=== PATIENT | female | born 1995 | race Caucasian/White ===

== ENCOUNTER 2023-11-16 17:05 | Emergency (ER) | payer OTHER, SELFPAY ==
--- NOTE | ~2023-11-16 | CT_ITS ---
EXAMINATION: CT soft tissue neck w con DATE: 11/17/2023 00:13 INDICATION: Right lymphadenopathy TECHNIQUE: Computed tomography (CT) of the neck was performed with 75 mL Omnipaque-350 intravenous co ntrast. Automated exposure control and iterative reconstruction technique were employed. Exam dose: 510.18 mGy-cm total exam DLP. COMPARISON: None FINDINGS: Prominence of the tonsils and adenoids. No abscess is detected. Normal epiglottis. No preve rtebral soft tissue swelling or emphysema. Normal parotid and submandibular glands. Normal size and homogeneous enhancement of the thyroid gland . No cervical mass lesion or cervical lymphadenopathy is noted. No hilar or mediastinal lymphadenopathy is detected in the upper chest. The mastoid air cells and paranasal sinuses appear normally developed and aerated. The orbital contents appear normal. Included intracranial contents and intracranial vasculature appear normal. Included upper lungs are clear. IMPRESSION: Adenoid and tonsillar prominent; no abscess is detected Reviewed, dictated and finalized at [facility]. Reviewed, dictated and finalized at [facility].
[2023-11-16 17:06] VITALS: BP 129/74; PULSE 62; RESP 16; TEMP 36.2; O2SAT 98
[2023-11-16 19:05] LABS: Strep Group A RT-PCR NOT DETECTED (Negative)
[2023-11-16 19:17] LABS: Influenza A QL RT-PCR Negative (Negative); Influenza B QL RT-PCR Negative (Negative); RSV RNA, RT-PCR Negative (Negative); SARS-CoV-2 RNA PCR Negative (Negative)
[2023-11-16 19:53] VITALS: BP 130/84; PULSE 75; O2SAT 100
--- NOTE | 2023-11-16 22:32 | ED.GENADULT ---
HPI - General Adult General Chief complaint: Unspecified Stated complaint: throat pain Time Seen by Provider: 11/16/23 22:03 Source: patient Mode of arrival: ambulatory Limitations: no limitations History of Present Illness HPI narrative: Patient is a 28-year-old female who presents the ED with report of right-sided neck pain and swelling. Patient reports she began noticing a knot on the right side of her anterior throat/neck on . States this has persisted. Has some discomfort with swallowing. Denies difficulty swallowing. Denies significant sore throat, cough or cold symptoms. She does have year-round allergies and states these have been worse the last few days. Denies fevers. Denies vomiting. Related Data Allergies Allergy/AdvReac Type Severity Reaction Status Date / Time No Known Allergies Allergy Verified 11/17/23 02:09 Review of Systems Review of Systems: CONSTITUTIONAL: Denies fever, chills, or sweats. ENT: See HPI. CARDIOVASCULAR: Denies chest pain. RESPIRATORY: Denies cough or dyspnea. GASTROINTESTINAL: Denies nausea, vomiting. All systems reviewed & are unremarkable except as noted in HPI and below Exam Narrative: GENERAL: Well appearing, obese with BMI of 33.0, non-toxic, in no acute distress. HEAD: Normocephalic, atraumatic. ENT: MMs moist. No significant posterior pharynx erythema. Tonsils are mildly enlarged bilaterally, symmetric, no obvious exudate. Uvula is midline and nonedematous. NECK: Supple, no meningeal signs. Mildly enlarged submandibular vs tonsillar lymphadenopathy noted on the right, soft, mildly tender. No significant posterior lymphadenopathy noted. RESPIRATORY: Airway patent, respirations nonlabored. No stridor or distress. CARDIOVASCULAR: Regular rate and rhythm MUSCULOSKELETAL: Moves all extremities. No gross deformities. SKIN: Warm, dry, normal color. NEURO: A&O X3. Speech clear PSYCHIATRIC: Appropriate mood and affect. Normal interaction. Course Vital Signs Vital signs: Vital Signs Temperature 97.1 F L 11/16/23 17:06 Pulse Rate 62 11/16/23 17:06 Respiratory Rate 16 11/16/23 17:06 Blood Pressure 129/74 11/16/23 17:06 Pulse Oximetry 98 11/16/23 17:06 Temperature 97.1 F L 11/16/23 17:06 Pulse Rate 88 11/17/23 02:47 Respiratory Rate 20 11/17/23 02:47 Blood Pressure 116/78 11/17/23 02:47 Pulse Oximetry 100 11/17/23 02:47 Medical Decision Making MDM Narrative Medical decision making narrative: Patient presented to ED with concern for knot/lump in right-sided neck. vital signs are stable upon arrival. No evidence of respiratory distress or respiratory compromise. No stridor. Exam consistent with lymphadenopathy, mild tonsillar hypertrophy noted on exam. Will obtain lab and imaging to further evaluate. Strep, influenza, RSV, COVID, mono negative. Laboratory studies are unremarkable. No leukocytosis. CT soft tissue neck obtained and showing prominent faucial and lingual tonsils, prominent adenoid tissue, multiple crypts. No evidence of abscess. +cervical lymphadenopathy. Patient updated on imaging results. She reports hx of frequent strep and mono in the past. Will treat for tonsillitis with antibiotics to cover for possible bacterial process, + steroids for inflammation. Will refer patient to ENT for further evaluation. Given strict return precautions. She is in agreement with plan. D/C in stable condition. Medical Records Medical records reviewed: Yes I reviewed the external patient's medical records. Vital Signs Vital Signs: Vital Signs Temperature 97.1 F L 11/16/23 17:06 Pulse Rate 62 11/16/23 17:06 Respiratory Rate 16 11/16/23 17:06 Blood Pressure 129/74 11/16/23 17:06 Pulse Oximetry 98 11/16/23 17:06 Temperature 97.1 F L 11/16/23 17:06 Pulse Rate 88 11/17/23 02:47 Respiratory Rate 20 11/17/23 02:47 Blood Pressure 116/78 11/17/23 02:47 Pulse Oximetry 100 11/17/23 02:47
[2023-11-16 23:12] VITALS: BP 129/87; PULSE 73; RESP 16; O2SAT 100
[2023-11-16 23:16] LABS: Basophils Percent Auto 0.6 % (0.2-1.2); Eosinophils Percent Auto 0.4 % (0-4.4); Hematocrit 39.3 % (37.0-47.0); Immature Granulocyte Absolute 0.01 K/mm3 (0.00-0.031); Immature Granulocyte Percent A 0.1 % (0-0.5); Lymphocytes Absolute Auto 2.69 K/mm3 (0.9-3.2); Lymphocytes Percent Auto 38.4 % (18.3-44.2); Mean Corpuscular HGB Conc 33.1 g/dl (32-36); Mean Corpuscular Hemoglobin 29.9 pg (26-34); Mean Corpuscular Volume 90.3 fl (80-100); Mean Platelet Volume 9.8 fl (7.4-10.4); Monocytes Absolute Auto 0.6 K/mm3 (0.1-0.6); Monocytes Percent Auto 7.8 % (2.6-8.5); Neutrophils Absolute Auto 3.7 K/mm3 (1.3-6.7); Neutrophils Percent Auto 52.7 % (45.5-73.1); Platelet Count Result 385 k/mm3 (150-375); Red Blood Count 4.35 M/mm3 (4.2-5.4); Red Cell Distribution Width 13.2 % (11.5-14.5)
[2023-11-16 23:31] LABS: Anion Gap 4 mmol/L (4-12); Blood Urea Nitrogen 12 mg/dL (7-17); Calcium 9.3 mg/dL (8.4-10.2); Carbon Dioxide 27 mmol/L (22-30); Chloride 105 mmol/L (98-107); Estimated CRCL calculation 129 ml/min; Estimated Glomerular Filt Rate > 60; Glucose 87 mg/dL (65-110); Potassium 3.7 mmol/L (3.4-5.0); Sodium 136 mmol/L (137-145)
[2023-11-16 23:33] LABS: Monoscreen Negative (Negative); Negative Monotest Control Negative (Negative); Positive Monotest Control Positive (Positive)
[2023-11-17 02:47] VITALS: BP 116/78; PULSE 88; RESP 20; O2SAT 100
[2023-11-17 03:32] VITALS: BP 128/89; PULSE 72; RESP 13; O2SAT 100
== END 2023-11-17 03:40 | disposition home or self-care (01) ==
PROVIDERS: Emergency Provider Physician Assistant; Referring Provider Emergency Medicine
DX: J03.90 Acute tonsillitis, unspecified (principal); R59.0 Localized enlarged lymph nodes; Z20.822 Contact with and (suspected) exposure to COVID-19
CPT/HCPCS: 36415; 70491; 80048; 81025; 85025; 86308; 87637; 87651; 99284; Q9967